=== PATIENT | female | born 1990 | race African-American/Black ===

== ENCOUNTER 2018-04-10 18:38 | Emergency (ER) | payer SELFPAY ==
[2018-04-10] MEDS: KETOROLAC 30 MG/ML INJ. IV (19:15)
[2018-04-10] MEDS: FAMOTIDINE 20 MG/2 ML VIAL IVP (19:30)
[2018-04-10 19:34] LABS: URINE HCG POC HCG NEGATIVE (Negative)
[2018-04-10 19:38] LABS: ADD MAN DIFF? NO; BASO % 1 % (0-3); EOS # 0.4 x10^3/uL (0.0-0.7); EOS % 6 % (0-3); HEMATOCRIT 34.4 % (36.0-47.0); HEMOGLOBIN 11.5 g/dL (12.0-15.5); LYMPH # 2.5 x10^3/uL (1.0-4.8); LYMPH % 39 % (24-48); MEAN CORPUSCULAR HEMOGLOBIN 28 pg (25-35); MEAN CORPUSCULAR HGB CONC 33 g/dL (31-37); MEAN CORPUSCULAR VOLUME 85 fL (79-100); MONO # 0.4 x10^3/uL (0.0-1.1); MONO % 7 % (0-9); NEUT % 47 % (31-73); PLATELET COUNT 299 x10^3/uL (140-400); RED BLOOD COUNT 4.04 x10^6/uL (3.50-5.40); WHITE BLOOD COUNT 6.4 x10^3/uL (4.0-11.0)
[2018-04-10 19:40] LABS: BILIRUBIN,URINE NEGATIVE (NEG); CLARITY,URINE CLEAR; COLOR,URINE YELLOW; GLUCOSE,URINE NEGATIVE (NEG); NITRITE,URINE NEGATIVE (NEG); PROTEIN,URINE NEGATIVE (NEG-TRACE)
[2018-04-10 19:44] LABS: AMPHETAMINE/METHAMPHETAMINE NEG (NEG); BARBITURATES NEG (NEG); BENZODIAZEPINES NEG (NEG); CANNABINOIDS NEG (NEG); COCAINE NEG (NEG); ETHANOL, URINE NEG (NEG); METHADONE NEG (NEG); OPIATES NEG (NEG); PHENCYCLIDINE NEG (NEG)
[2018-04-10 19:46] LABS: ANION GAP 9 (6-14); BLOOD UREA NITROGEN 14 mg/dL (7-20); BUN/CREATININE RATIO 16 (6-20); CALCIUM 8.5 mg/dL (8.5-10.1); CARBON DIOXIDE 28 mmol/L (21-32); CHLORIDE 103 mmol/L (98-107); CREATININE 0.9 mg/dL (0.6-1.0); GFR 91.6; GLUCOSE 97 mg/dL (70-99); POTASSIUM 3.8 mmol/L (3.5-5.1); SODIUM 140 mmol/L (136-145)
[2018-04-10 19:47] LABS: INR 1.1 (0.8-1.1); PROTHROMBIN TIME PATIENT 13.4 SEC (11.7-14.0)
[2018-04-10 19:53] LABS: ALBUMIN 3.6 g/dL (3.4-5.0); ALK PHOS 94 U/L (46-116); ALT (SGPT) 8 U/L (14-59); AST (SGOT) 17 U/L (15-37); BACTERIA,URINE MANY /HPF (0-FEW); CREATINE KINASE 156 U/L (26-192); LIPASE 207 U/L (73-393); SQUAMOUS EPITHELIAL CELL,UR MANY /LPF; TOTAL BILIRUBIN 0.2 mg/dL (0.2-1.0); TOTAL PROTEIN 7.3 g/dL (6.4-8.2); TRICHOMONAS,URINE PRESENT
[2018-04-10 19:57] LABS: TROPONINI < 0.017 ng/mL (0.000-0.055)
[2018-04-10 20:01] LABS: D-DIMER 0.47 ug/mlFEU (0.00-0.50)
[2018-04-10] MEDS: metroNIDAZOLE 500 MG TABLET PO (20:18)
== END 2018-04-10 20:52 | disposition home or self-care (01) ==
LOC: ER 20:52
DX: N39.0 Urinary tract infection, site not specified (principal); A59.9 Trichomoniasis, unspecified; K21.9 Gastro-esophageal reflux disease without esophagitis; R07.89 Other chest pain
CPT/HCPCS: 36415; 71046; 80053; 80307; 81001; 81025; 82550; 83690; 84484; 85025; 85379; 85610; 87086; 93005; 96374; 96375; 99285-25; J1885; S0028

== ENCOUNTER 2019-08-24 18:01 | Emergency (ER) | payer BC ==
[~2019-08-24] VITALS: Ht 160 cm; Wt 96.2 kg
[~2019-08-24 18:01] MED LIST: NITR100C62 PO
[2019-08-24 18:29] VITALS: BP 130/71
--- NOTE | 2019-08-24 19:11 | PHYS DOC ---
Past Medical History Past Medical History: No Pertinent History (YOJANA HEMPHILL APRN) Past Surgical History: , Tubal ligation (YOJANA HEMPHILL APRN) Alcohol Use: None Drug Use: None (YOJANA HEMPHILL APRN) Attending Signature I have participated in the care of this patient and I have reviewed and agree with all pertinent clinical information above including history, exam, and recommendations. (WANDER BOSTON MD) Adult General Chief Complaint Chief Complaint: SORE THROAT HPI HPI Patient is a 28 year old female who presents to the ED today complaining of sore throat that began after having a tubal ligation today, she states she has not returned home since her procedure was done at [facility]. Patient states she was intubated during the procedure. Denies any bleeding, difficulty breathing or swallowing. (YOJANA HEMPHILL APRN) Review of Systems Review of Systems Constitutional: Denies fever or chills [] Eyes: Denies change in visual acuity, redness, or eye pain [] HENT: Reports sore throat. Denies nasal congestion Respiratory: Denies cough or shortness of breath [] Cardiovascular: No additional information not addressed in HPI [] GI: Denies abdominal pain, nausea, vomiting, bloody stools or diarrhea [] : Denies dysuria or hematuria [] Musculoskeletal: Denies back pain or joint pain [] Integument: Denies rash or skin lesions [] Neurologic: Denies headache, focal weakness or sensory changes [] All other systems were reviewed and found to be within normal limits, except as documented in this note. (YOJANA HEMPHILL APRN) Allergies Allergies Allergies Coded Allergies Type Severity Reaction Last Updated Verified No Known Drug Allergies 04/10/18 No (WANDER BOSTON MD) Physical Exam Physical Exam Constitutional: Well developed, well nourished, no acute distress, non-toxic appearance. [] HENT: Normocephalic, atraumatic, bilateral external ears normal, oropharynx moist, no oral exudates, nose normal. [] Midline uvula with a tiny laceration around the tip of the uvula. Eyes: PERRLA, EOMI, conjunctiva normal, no discharge. [] Neck: Normal range of motion, no tenderness, supple, no stridor. [] Cardiovascular:Heart rate regular rhythm, no murmur [] Lungs & Thorax: Bilateral breath sounds clear to auscultation [] Abdomen: Bowel sounds normal, soft, no tenderness, no masses, no pulsatile masses. Tubal ligation laparoscopic incisions are clean and dry. Skin: Warm, dry, no erythema, no rash. [] Back: No tenderness, no CVA tenderness. [] Extremities: No tenderness, no cyanosis, no clubbing, ROM intact, no edema. [] Neurologic: Alert and oriented X 3, normal motor function, normal sensory function, no focal deficits noted. [] Psychologic: Affect normal, judgement normal, mood normal. [] (YOJANA HEMPHILL APRN) Current Patient Data Vital Signs Vital Signs Date Time Temp Pulse Resp B/P (MAP) Pulse Ox O2 Delivery O2 Flow Rate FiO2 08/24/19 18:29 98.1 72 18 130/71 (90) 97 Room Air 98.1 (WANDER BOSTON MD) EKG EKG [] (YOJANA HEMPHILL APRN) Radiology/Procedures Radiology/Procedures [] (YOJANA HEMPHILL APRN) Course & Med Decision Making Course & Med Decision Making Pertinent Labs and Imaging studies reviewed. (See chart for details) This is a 28-year-old. Patient who presents to the ED today complaining of a sore throat after having a tubal ligation earlier today. Patient states she was intubated during the procedure. She does have bruising around the uvula otherwise no bleeding, no signs of infection. Supportive care measures recommended. Discharged home. (YOJANA HEMPHILL APRN) Dragon Disclaimer Dragon Disclaimer This electronic medical record was generated, in whole or in part, using a voice recognition dictation system. (YOJANA HEMPHILL APRN) Departure Departure Impression: Primary Impression: Sore throat Disposition: HOME, SELF-CARE Condition: STABLE Referrals: UNKNOWN PCP NAME (PCP) follow up with your doctor next week Patient Instructions: Sore Throat, [id number] Additional Instructions: You were evaluated in the medicine for sore throat after having tubal ligation this is not unusual because they usually put a tube down your throat which can cause irritation. Use saltwater gargles as needed. You can take Tylenol/Motrin for pain. Follow-up with your doctor next week. YOJANA HEMPHILL APRN Aug 24, 2019 19:11 WANDER BOSTON MD Aug 24, 2019 21:31
== END 2019-08-24 19:20 | disposition home or self-care (01) ==
LOC: ER 18:01
DX: J02.9 Acute pharyngitis, unspecified (principal); Z98.51 Tubal ligation status; Z98.890 Other specified postprocedural states
CPT/HCPCS: 99281